=== PATIENT | female | born 1980 | race American Indian/Alaskan Native ===

== ENCOUNTER 2016-10-09 10:25 | Outpatient (CLI) | payer OTHER ==
[2016-10-11 06:32] LABS: Vitamin D, 25-OH, Total 11 ng/mL (30-100)
== END 2016-10-09 10:26 | disposition home or self-care (01) ==
LOC: LAB 10:25
PROVIDERS: ATTEND Specialist
DX: E11.42 Type 2 diabetes mellitus with diabetic polyneuropathy (principal)
CPT/HCPCS: 36415; 82085; 82164; 82306; 82550; 82607; 83921; 84443; 85652; 86038; 86225; 86235; 86334; 86592; 86618

== ENCOUNTER 2017-09-08 07:04 | Day surgery (SDC) | payer OTHER ==
[~2017-09-08 07:04] MED LIST: CLEOCIN 900 MG/50 mL 900 MG/50 ML BAG IV SCH
[2017-09-08] MEDS ORDERED: XYLOCAINE 1% 20 mL ONE (08:21)
[2017-09-08] MEDS ORDERED: MARCAINE 0.25% INFILTRATI ONE ×2 (08:21→10:15)
[2017-09-08] MEDS ORDERED: SUBLIMAZE ONE (09:39)
[2017-09-08] MEDS ORDERED: XYLOCAINE MPF 2% ONE (09:39)
[2017-09-08] MEDS ORDERED: DIPRIVAN 10 MG/ML IV ONE (09:40)
[2017-09-08] MEDS ORDERED: ZOFRAN IV PRN (09:50)
[2017-09-08] MEDS ORDERED: NACL 0.9% 1000 ML 1,000 ML ONE (09:51)
--- NOTE | 2017-09-08 09:56 | Anesthesia Consultation ---
Anesthesia Consult and Med Hx Date of service: 09/08/17 - Airway Anesthetic Teeth Evaluation: Good ROM Head & Neck: Adequate Mental/Hyoid Distance: Adequate Mallampati Class: Class II Intubation Access Assessment: Probably Good - Pulmonary Exam CTA: Yes - Cardiac Exam Cardiac Exam: RRR - Pre-Operative Health Status ASA Pre-Surgery Classification: ASA1 Proposed Anesthetic Plan: General - Pulmonary Hx Smoking: No Hx Asthma: Yes (NO MEDS) Hx Sleep Apnea: Yes (DX SLEEP APNEA , NO CPAP USE.) - Cardiovascular System Hx Hypertension: No (TAKES LISINOPRIL FOR KIDNEY PROTECTION) - Hematic Hx Anemia: Yes (NOT RECENT) - Other Systems Hx Cancer: No
--- NOTE | 2017-09-08 09:57 | Anesthesia Day of Surgery ---
Anesthesia Day of Surgery - Day of Surgery Patient Examined: Yes Patient H&P Reviewed: Yes Patient is NPO: Yes Cardiac Clearance: Yes
[2017-09-08] MEDS ORDERED: NACL 0.9% 1000 ML 1,000 ML IV SCH (10:00)
[2017-09-08] MEDS ORDERED: NEURONTIN PO NR (10:00)
[2017-09-08] MEDS ORDERED: VERSED IV NR (10:00)
[2017-09-08] MEDS ORDERED: PEPCID IV NR (10:00)
[2017-09-08] MEDS ORDERED: XYLOCAINE 1% 20 mL INFILTRATI ONE (10:15)
[2017-09-08] MEDS ORDERED: ADRENALIN IV ONE (10:24)
[2017-09-08] MEDS ORDERED: ZOFRAN ONE (10:37)
--- NOTE | 2017-09-08 11:01 | Short Stay Summary ---
Short Stay Documentation Date of service: 09/08/17 - History H&P: obtained from office - Allergies and Medications Current Medications: Allergies Penicillins Allergy (Verified 09/04/17 10:47) Hives , SWELLING pregabalin [From Lyrica] Allergy (Verified 09/04/17 10:46) Anaphylaxis Home Medications Medication Instructions Recorded Confirmed Last Taken Type Aspirin [Lo-Dose Aspirin EC] 81 mg PO DAILY 09/04/17 09/08/17 08/11/17 History AtorvaSTATin [Lipitor] 20 mg PO QHS 09/04/17 09/08/17 08/27/17 History Lisinopril [Zestril TAB] 2.5 mg PO QDAY 09/04/17 09/08/17 08/27/17 History metFORMIN [Glucophage] 500 mg PO BID 09/04/17 09/08/17 09/07/17 17:00 History Active Medications Famotidine (Pepcid) 20 mg IV PREOP NR Stop: 09/08/17 12:00 Gabapentin (Neurontin) 300 mg PO PREOP NR Stop: 09/08/17 23:00 Hydromorphone HCl (Dilaudid) 0.5 mg IV Q10MIN PRN PRN Reason: Pain , Severe (7-10) Stop: 09/08/17 13:00 Clindamycin HCl (Cleocin 900 Mg/50 Ml) 900 mg in 50 mls @ 100 mls/hr IV PREOP CASI PRN Reason: Protocol Stop: 09/08/17 12:00 Sodium Chloride (Nacl 0.9% 1000 Ml) 1,000 mls @ 42 mls/hr IV DIRECT CASI Last Admin: 09/08/17 09:57 Dose: 42 mls/hr Midazolam HCl (Versed) 2 mg IV PREOP NR Stop: 09/08/17 23:59 Ondansetron HCl (Zofran) 4 mg IV ONCE PRN PRN Reason: Nausea And Vomiting Stop: 09/08/17 12:00 - Brief post op/procedure progress note Date of procedure: 09/08/17 Pre-op diagnosis: persistent left knee pain with mechanical symptoms, medial meniscus tear Post-op diagnosis: other (persistent left knee pain, with mechanical symptoms, large complex tears medial and lateral meniscus, grade III/IV articular cartilage of all 3 compartments, large loose bodies) Procedure: left knee arthroscopy partial medial and lateral meniscectomy, abrasion chondroplasty lateral femoral condyle, removal of large loose bodies Anesthesia: GETA Findings: as above Surgeon: JIM GAITAN Estimated blood loss: minimal Pathology: none Condition: stable - Hospital course Hospital course: no perioperative complications - Disposition Condition at discharge: Good Disposition: DC-01 TO HOME OR SELFCARE Short Stay Discharge Plan Follow up with: ARACELIS VEGAS MD [Primary Care Provider] - 7 Days
[2017-09-08] MEDS: DILAUDID IV PRN ×2 (11:05→11:15)
[2017-09-08] MEDS ORDERED: PERCOCET 5/325 PO PRN (11:32)
--- NOTE | 2017-09-08 12:08 | Operative Report ---
PREOPERATIVE DIAGNOSES: Persistent left knee pain with mechanical symptoms, medial meniscus tear. POSTOPERATIVE DIAGNOSES: Persistent left knee pain with mechanical symptoms. Large complex tear located within the posterior horn of the medial meniscus. Large complex tear located at the junction of the anterior and posterior horn of the lateral meniscus. Extremely large cartilaginous loose bodies located diffusely throughout the intraarticular aspect of the knee, grade 3/4 articular cartilage loss for almost the entire weightbearing portion of the medial femoral condyle, medial tibial plateau, lateral femoral condyle and lateral tibial plateau, grade 4 articular cartilage loss of the central aspect of the patella and trochlea, extremely large loose bodies located diffusely in the medial and lateral gutters along the medial and lateral femoral condyle as well as within the notch. OPERATIVE PROCEDURE: Left knee arthroscopy, partial medial and lateral meniscectomies, removal of large loose bodies, abrasion chondroplasty of the loose fibrinous articular cartilage of the lateral femoral condyle. SURGEON: Keegan Cummings M.D. SUPERVISOR OPERATIONS: None. ANESTHESIA: General. ANTIBIOTICS: Clindamycin 900 mg IV within 1 hour of skin incision. DVT PROPHYLAXIS: SCD pumps to the nonoperative right lower extremity. OPERATIVE COMPLICATIONS: None. INDICATIONS: This is a 37-year-old female who has had persistent progressive worsening left knee pain with mechanical symptoms. The pain has failed to improve despite extensive nonoperative treatment and is markedly limiting her day-to-day activities. MRI scan was performed, which was positive for large complex tear located within the posterior horn of the medial meniscus, a joint effusion as well as articular cartilage wear of the medial patellofemoral compartments. The patient's MRI findings and diagnosis were discussed at length. After making sure the patient understood her diagnosis and all her questions were answered, we then discussed treatment alternatives of surgical and nonsurgical including risks and benefits of both. After a long lengthy discussion, the patient opted to proceed with operative intervention. This will entail a left knee arthroscopy, partial medial meniscectomy and surgery as indicated. The risks of which were discussed to include but not exclusive of infection, blood loss, nerve damage, loss of range of motion and persistent pain. Again, the patient understood, all of her questions answered. She wished to proceed with operative intervention. OPERATIVE PROCEDURE: The patient was seen in the preoperative holding room area, at which point informed consent was reviewed and appropriate left lower extremity was identified and then marked. The patient was then brought back to the operating room and placed supine on the standard operating room table at which point general anesthesia was administered and an LMA tube was inserted. After confirmation of adequate general anesthesia and checking appropriate placement of the LMA tube, we then made sure that all bony prominences were well padded. There were no wrinkles. Compression stocking to the right lower extremity and SCD pump was applied to the right lower extremity. The arms were secured in neutral position with the aid of the arm boards. The head was secured in a nice neutral position as well. The left lower extremity was then examined under anesthesia. The patient was seen to have full range of motion, 0-130 degrees of flexion. There was no ligamentous instability with a negative Debbie, negative anterior drawer, negative posterior drawer. No varus or valgus instability at 0 as well as 30 degrees of flexion. No recurvatum or excessive internal rotation. Following examination under anesthesia, the left lower extremity was then prepped and draped in the usual sterile fashion. After prepping and draping, a timeout was called and the appropriate left lower extremity was identified which again had been marked in the preoperative holding area We began procedure by first infiltrating the knee with 30 mL of 0.25% Marcaine without epinephrine and 30 mL of 1% lidocaine without epinephrine which the patient tolerated well. There were no complications. Following this, we began the procedure by first making a standard anterolateral portal with a #15 blade. Once the portal was established, the cannula with the blunt trocar was inserted into the intra-articular aspect of the knee joint. This went without difficulty or damage to articular cartilage. Once in place, the arthroscopic camera was immediately placed in the anteromedial aspect of the knee joint, established anterior medial portal by first inserting 18 inch spinal needle under direct arthroscopic visualization, was confirmed to be superior to the medial meniscus and in an appropriate position. A 15 blade was then used to establish an anteromedial portal again under direct arthroscopic visualization. Once the portals established, the blunt trocar was inserted to widen the portal site following an arthroscopic probe. We began a diagnostic arthroscopy in the medial compartment. The patient had a large complex tear located in the posterior horn of the medial meniscus. This was irreparable and performed a partial medial meniscectomy in standard fashion using a series of basket punches and a 4.0 meniscal shaver again down to nice smooth stable healthy remaining border, all involving the white-white as well as a portion of the white-red zone. There was grade 3/4 articular cartilage loss almost the entire weightbearing portion of the medial femoral condyle and medial tibial plateau. The loose fibrous cartilage edges were debrided using the 4.0 meniscal shaver and using standard mechanical abrasion chondroplasty technique. There were large cartilaginous loose bodies located diffusely throughout the medial aspect of the knee joint, which were removed using the arthroscopic grasper. Inspection of the notch showed the ACL and PCL to be intact and stable when probed. There were large osteophytes located diffusely throughout the notch. Inspection of the lateral compartment showed to be grade 4 articular cartilage loss from its entire weightbearing portion of the lateral femoral condyle and lateral tibial plateau. There was a very large loose cartilaginous flap located on the lateral femoral condyle. We performed a mechanical abrasion chondroplasty using standard mechanical bridge chondroplasty technique with 4.0 meniscal shaver. We turned our attention to the lateral meniscus which was shown to have a complex tear located at the junction of the anterior and posterior horn of the lateral meniscus. This was treated with a partial lateral meniscectomy using a series of basket punches and a 4.0 meniscal shaver getting down to a nice smooth stable healthy remaining border along removing the white-white as well as portion of the white-red zone. There was also grade 4 articular cartilage loss from the entire weightbearing portion of the lateral tibial plateau. There were also very large cartilaginous loose bodies which were removed using the arthroscopic grasper. Inspection of the medial lateral gutter showed to be small cartilage loose bodies which were removed using arthroscopic shaver. Inspection of patellofemoral joint showed to be grade 4 articular cartilage loss, mostly entire central aspect of the patella and trochlea. There were small cartilage loose bodies located diffusely in the suprapatellar pouch, which were removed using arthroscopic shaver. There were large osteophytes located both within the medial and lateral gutter adjacent to the medial and lateral femoral condyle. The arthroscopic camera was then placed in the posterior aspect of the knee adjacent to the cruciate ligaments and femoral condyle. Once in the posterior aspect of the knee, we saw there were no root tears of the menisci and there were no loose bodies present. Arthroscopic camera was then removed from the posterior aspect of the knee. The arthroscopic pump was then turned off making sure there was good hemostasis and once this was confirmed, the extraneous fluid was suctioned from the knee using arthroscopic cannula. Following this, all the arthroscopic instrumentation was removed. The 2 portal sites were closed with 3-0 nylon in simple fashion. Adaptic, 4 x 4s, ABD, sterile cast padding and an Ed wrap was applied. The patient was awakened from general anesthesia without complications, taken to recovery room in stable condition and postoperative orders were written. JOB# [id number] ANN/MICHELLE
[2017-09-08] MEDS ORDERED: BENADRYL IV PRN (13:02)
[2017-09-08] MEDS ORDERED: ZOFRAN IV ONE (13:03)
[2017-09-08 13:22] VITALS: BP 119/78
--- NOTE | 2017-09-08 22:17 | Post Anesthesia Evaluation ---
- Post Anesthesia Evaluation Patient Participated: Yes Airway Patent: Yes Stable Respiratory Function: Yes Nausea/Vomiting: No Temp > 96.8F: Yes Pain Manageable: Yes Adequeate Hydration: Yes Anesthesia Complications: No
== END 2017-09-08 13:45 | disposition home or self-care (01) ==
LOC: OR 07:04
PROVIDERS: ATTEND Orthopaedic Surgery
DX: S83.232A Complex tear of medial meniscus, current injury, left knee, initial encounter (principal); S83.272A Complex tear of lateral meniscus, current injury, left knee, initial encounter; M23.42 Loose body in knee, left knee; M94.8X6 Other specified disorders of cartilage, lower leg; E78.00 Pure hypercholesterolemia, unspecified; J45.909 Unspecified asthma, uncomplicated; E11.9 Type 2 diabetes mellitus without complications; M19.90 Unspecified osteoarthritis, unspecified site; X58.XXXA Exposure to other specified factors, initial encounter; Y93.89 Activity, other specified; Y92.89 Other specified places as the place of occurrence of the external cause; Z88.0 Allergy status to penicillin; Z88.8 Allergy status to other drugs, medicaments and biological substances; Z79.82 Long term (current) use of aspirin; Z79.2 Long term (current) use of antibiotics; Z79.84 Long term (current) use of oral hypoglycemic drugs; Z79.899 Other long term (current) drug therapy; Z90.49 Acquired absence of other specified parts of digestive tract; Z98.51 Tubal ligation status
CPT/HCPCS: 29879; 29880; 81025; 82962; 97161; G8978; G8979; G8980; J0171; J1170; J1200; J2405; J2704; J3010; J7030